=== PATIENT | male | born 1975 | race African-American/Black ===

== ENCOUNTER 2019-08-21 17:11 | Emergency (ER) | payer OTHER ==
--- NOTE | 2019-08-21 17:14 | PDOC ---
Rapid Medical Evaluation Time Seen by Provider: 08/21/19 17:13 Medical Evaluation: Allergies Allergy/AdvReac Type Severity Reaction Status Date / Time No Known Allergies Allergy Verified 02/23/16 17:56 08/21/19 17:13 HPI: Atraumatic L knee pain x 1 day no fevers PE: Bears weight no gross deficits ORDERS: Nothing Discharge Disposition - Diagnosis Left knee pain - Referrals - Patient Instructions - Post Discharge Activity
[2019-08-21 17:18] VITALS: BP 142/83; PULSE 97; TEMP 98.3; BMI 33.0
--- NOTE | 2019-08-21 18:42 | PDOC ---
History of Present Illness - General Chief Complaint: Pain, Acute Stated Complaint: KNEE PAIN/COUGH Time Seen by Provider: 08/21/19 17:13 History Source: Patient Exam Limitations: No Limitations - History of Present Illness Initial Comments: 08/21/19 18:40 Chief complaint: Cough and leg pain 43-year-old male with no significant medical problems who states he has had a cough after a cold for 2 to 3 weeks. Patient was using his son's nebulizer for a while, has not used it in the last few days. Patient has no fever or shortness of breath. Patient also states he is developed pain to the inside of his leg, just above the knee. Patient not aware of any injury. GENERAL/CONSTITUTIONAL: No fever, weakness. dizziness HEAD, EYES, EARS, NOSE AND THROAT: No change in vision. No ear pain or discharge. No sore throat. CARDIOVASCULAR: No chest pain RESPIRATORY: No shortness of breath, + cough GASTROINTESTINAL: No pain, nausea, vomiting, diarrhea or constipation GENITOURINARY: No dysuria MUSCULOSKELETAL: No neck or back pain, + left leg SKIN: No rash NEUROLOGIC: No headache, vertigo, loss of consciousness, or loss of sensation. GENERAL: The patient is awake, alert, and fully oriented, in no acute distress. HEAD: Normal with no signs of trauma. EYES: Pupils equal, round and reactive to light, sclera anicteric, conjunctiva clear. ENT: pharynx: no erythema, no exudate, uvula midline NECK: supple CHEST: clear, nontender, rr ABD: soft, nontender BACK: no tenderness or signs of injury EXTREMITIES: Left lower extremity with tenderness on the medial aspect of the leg just above the knee, no signs of infection, no calf pain, good range of motion, neurovascular intact. Rest of extremities, normal range of motion, no edema. NEUROLOGICAL: Normal speech, no focal deficits SKIN: Warm, Dry 08/21/19 18:42 Past History - Past Medical History Allergies/Adverse Reactions: Allergies Allergy/AdvReac Type Severity Reaction Status Date / Time No Known Allergies Allergy Verified 08/21/19 17:15 Home Medications: Ambulatory Orders Cyclobenzaprine HCl [Flexeril -] 10 mg PO TID #21 tablet 02/23/16 Naproxen [Naprosyn -] 500 mg PO BID #14 tablet 02/23/16 - Immunization History Immunization Up to Date: Yes - Psycho Social/Smoking Cessation Hx Smoking History: Never smoked Have you smoked in the past 12 months: No Hx Alcohol Use: No Drug/Substance Use Hx: No Substance Use Type: None *Physical Exam - Vital Signs Last Vital Signs Temp Pulse Resp BP Pulse Ox 98.3 F 97 H 16 142/83 99 08/21/19 17:15 08/21/19 17:15 08/21/19 17:15 08/21/19 17:15 08/21/19 17:15 ED Treatment Course - RADIOLOGY Radiology Studies Ordered: Category Date Time Status CHEST PA & LAT [RAD] Stat Radiology 08/21/19 17:41 Taken DUPLEX VASCUL US-1 LEG [US] Stat Ultrasound 08/21/19 17:42 Taken Medical Decision Making - Medical Decision Making 08/21/19 19:24 Healthy 43-year-old male with 2 to 3 weeks of cough, seems to be getting better but still concern. He came to the ER mostly for his left knee which has swelling on the medial aspect of the lower thigh. Patient has no fever, no shortness of breath, no recent travel. Area is not erythematous. Patient has good range of motion. He is able to walk. Chest x-ray shows no acute issues, ultrasound shows a 5.4 x 2.7 x 2 point a complex multi septated cyst in the area where he has pain. Patient will be referred to orthopedist, this is fully discussed with patient. Discussed issues, findings, results, applicable medications and treatments and follow-up. All these were understood and all questions were answered Discharge - Discharge Information Problems reviewed: Yes Clinical Impression/Diagnosis: Cough Left knee pain Qualifiers: Chronicity: acute Qualified Code(s): M25.562 - Pain in left knee Condition: Stable Disposition: HOME - Follow up/Referral - Patient Discharge Instructions Additional Instructions: Drink 2-3 L of water daily Take Tylenol 650 mg every 4 hours or Motrin 600 mg every 6 hours for fever and pain Return to the nearest ER if short of breath, unable to swallow or feeling sicker Followup with your doctor in one to 2 days It is very important for you to follow-up with the orthopedist to further evaluate if the cyst in your thigh. In the meanwhile you can wrap it with an Zeus bandage and take Motrin or Tylenol as above. Return to the ER as above - Post Discharge Activity
== END 2019-08-21 19:50 | disposition home or self-care (01) ==
LOC: JERFT 17:11
DX: M25.562 Pain in left knee (principal); R05 Cough
CPT/HCPCS: 71046-TC-FY; 93971-TC; 99281-25